=== PATIENT | male | born 1995 | race African-American/Black ===

== ENCOUNTER 2017-03-25 13:21 | Emergency (ER) | payer SELFPAY ==
[~2017-03-25] VITALS: Ht 162.6 cm; Wt 78.0 kg
[2017-03-25 14:12] VITALS: BP 124/55
[2017-03-25] MEDS ORDERED: BACITRACIN ZINC OINT UDPKT TOP ONE (14:45)
== END 2017-03-25 16:38 | disposition home or self-care (01) ==
LOC: ER 16:08
DX: S70.02XA Contusion of left hip, initial encounter (principal); S80.212A Abrasion, left knee, initial encounter; V29.88XA Motorcycle rider (driver) (passenger) injured in other specified transport accidents, initial encounter; Y93.89 Activity, other specified; Y92.89 Other specified places as the place of occurrence of the external cause; Y99.8 Other external cause status
CPT/HCPCS: 73502; 99284; X7700